=== PATIENT | female | born 1930 | race Caucasian/White ===

== ENCOUNTER → 2016-08-29 | Outpatient (CLI) | payer OTHER ==
[~2016-08-29] MED LIST: ACET-1175 PO; AMLO-110 PO; ASPEC81 PO; ATOR-26 PO; CARV25TA2 PO; CHOL100010 PO; CLOP1TAB15 PO; CLTP PO; CTP/1 PO; FURO-85 PO; HYDR-4717 PO; LISI-791 PO; MAGN1CAP2 PO; PANT1TAB48 PO; POLY335025 PO; SENN-104 PO
[2016-08-29 12:56] LABS: BLOOD UREA NITROGEN 25 mg/dl (7-18); BUN/CREATININE RATIO 13.4 (10-20); CALCIUM 9.8 mg/dl (8.5-10.1); CARBON DIOXIDE 28 mmol/L (21-32); CHLORIDE 108 mmol/L (98-107); GLUCOSE 114 mg/dl (70-99); POTASSIUM 4.1 mmol/L (3.5-5.1); SODIUM 142 mmol/L (136-145)
== END | disposition home or self-care (01) ==
LOC: C.LABSALHI 11:43
PROVIDERS: ATTEND Nurse Practitioner Family
DX: R60.9 Edema, unspecified (principal)

== ENCOUNTER → 2017-09-19 | Outpatient (CLI) | payer OTHER ==
[~2017-09-19] MED LIST changes: +PANT1TAB3 PO; -PANT1TAB48 PO
[2017-09-19 09:57] LABS: HEMATOCRIT 35.9 % (37-47); HEMOGLOBIN 11.6 g/dL (12.0-16.0); MEAN CELL VOLUME 85.7 fL (80-100); MEAN CORPUSCULAR HEMOGLOBIN 27.7 pg (25-34); MEAN CORPUSCULAR HGB CONC 32.3 g/dl (32-36); MEAN PLATELET VOLUME 9.5 fL (7.4-10.4); PLATELET COUNT 201 K/uL (130-400); RED CELL DISTRIBUTION WIDTH CV 14.3 % (11.5-14.5); RED CELL DISTRIBUTION WIDTH SD 44.6 fL (36.4-46.3); WHITE BLOOD COUNT 7.39 K/uL (4.8-10.8)
[2017-09-19 10:09] LABS: BLOOD UREA NITROGEN 33 mg/dl (7-18); CALCIUM 10.5 mg/dl (8.5-10.1); CARBON DIOXIDE 27 mmol/L (21-32); CREATININE 2.11 mg/dl (0.60-1.20); GLUCOSE 103 mg/dl (70-99); POTASSIUM 4.1 mmol/L (3.5-5.1); SODIUM 142 mmol/L (136-145)
== END ==
LOC: C.LABCC 08:33
PROVIDERS: ATTEND Internal Medicine
DX: N18.3 Chronic kidney disease, stage 3 (moderate) (principal); D64.9 Anemia, unspecified

== ENCOUNTER → 2017-10-03 | Outpatient (CLI) | payer OTHER | LOC: C.LABCC 08:11 | PROVIDERS: ATTEND Internal Medicine | DX: I63.9 Cerebral infarction, unspecified (principal) ==

== ENCOUNTER 2017-10-19 10:40 | Emergency (ER) | payer OTHER ==
[~2017-10-19] VITALS: Ht 160 cm; Wt 72.4 kg
[2017-10-19 10:50] VITALS: TEMP 36.7; Ht 160 cm; Wt 72.4 kg
--- NOTE | 2017-10-19 10:51 | EMERGENCY ROOM VISIT NOTE ---
History Report prepared by Jose: Carlee Freire Under the Supervision of: Dr. Baldo Baldreas M.D. First contact with patient: 10:39 Stated Complaint: FALL/ CONFUSED History of Present Illness The patient is a 84 year old female who presents to the Emergency Room with complaints of a fall beginning yesterday. As per EMS, the patient fell out of her wheelchair facedown yesterday and [facility] has been monitoring her since. They noticed that at 0800 this morning she was not responding normally. When asked, the patient is unsure of how she fell. She has hip and abdominal pain. She is currently taking Plavix. She is DNR and has a history of CVA and mild dementia. Source of History: patient, EMS Onset: yesterday Position: head, other (upper and lower extremities, hips) Quality: other (fall) Associated Symptoms: + abdominal pain Note: Positive hip pain Review of Systems See HPI for pertinent positives and negatives. A total of ten systems were reviewed and were otherwise negative. Past Medical & Surgical Medical Problems: (1) Dyslipidemia (2) Gastroesophageal reflux disease (3) Hyperlipidemia Family History Patient reports no known family medical history. Social History Smoking Status: Unknown if Ever Smoked Drug Use: none Housing Status: assisted living Occupation Status: retired Current/Historical Medications Scheduled Aspirin (Aspirin Ec), 81 MG PO DAILY Atorvastatin (Lipitor), 20 MG PO QPM Calcium Carbonate-Vitamin D (Caltrate 600+D 600-400 mg-Unit), 1 TAB PO BID Carvedilol (Coreg), 25 MG PO BID Clopidogrel (Plavix), 75 MG PO DAILY@1200 Docusate Sodium (Colace), 200 MG PO QPM Hydralazine Hcl (Apresoline), 75 MG PO TID Pantoprazole (Protonix), 40 MG PO DAILY Tramadol (Ultram), 50 MG PO QAM Scheduled PRN Acetaminophen (Tylenol), 650 MG PO Q 4-6 HOURS PRN for Pain or Fever Allergies Coded Allergies: Alendronate (Verified Allergy, Unknown, abd pain, 10/19/17) Physical Exam Vital Signs Date Time Temp Pulse Resp B/P (MAP) Pulse Ox O2 Delivery O2 Flow Rate FiO2 10/19/17 13:43 60 20 148/83 94 Room Air 10/19/17 12:27 55 16 131/65 93 Room Air 10/19/17 10:50 36.7 58 16 149/75 95 Room Air Physical Exam Physical Exam GENERAL: A and O x1. She appears well-developed and well-nourished. She does not appear distressed. HENT: Exam performed. Head: Normocephalic and atraumatic. Hematoma over her right forehead. Right Ear: External ear normal. No mastoid tenderness. Left Ear: External ear normal. No mastoid tenderness. Mouth/Throat: The oropharynx is clear and moist. No trismus in the jaw. No dental abscesses or uvula swelling. No oropharyngeal exudate or tonsillar abscesses. ____ EYES: Conjunctivae and EOM are normal. Pupils are equal, round, and reactive to light. Right eye exhibits no discharge. Left eye exhibits no discharge. No scleral icterus. ____ NECK: Normal range of motion. Neck supple. No JVD present. No spinous process tenderness present. No carotid bruit present. No rigidity. No tracheal deviation and normal range of motion present. No Brudzinski's sign and no Kernig 's sign noted. ____ CV: Normal rate, regular rhythm, normal heart sounds and intact distal pulses. There is no peripheral edema. Palpable radial pulses bue. ____ PULM/CHEST: Effort normal and breath sounds normal. No respiratory distress. No stridor. She has no wheezes. She has no rales. Chest Wall: She exhibits no tenderness. ____Bruising over her left anterior chest wall. ABD: The abdomen is soft. Bowel sounds are normal. She has no distension. No mass is present. There is no tenderness. There is no rebound, no guarding, no Melgoza's sign and no tenderness at McBurney's point. Rovsig negative MUSC/SKEL: Normal range of motion. There is no peripheral edema or deformity. __ Bilateral knee pain. Pain on palpation of the left hip. Bruising over the bilateral anterior knees. Pain on palpation of the C spine. Bruising over her left shoulder. LYMPH: No cervical adenopathy. ____ NEURO: She is alert and oriented to place. She has normal strength. No cranial nerve deficit or sensory deficit. GCS eye subscore is 4. GCS verbal subscore is 5. GCS motor subscore is 6. SKIN: Skin is warm and dry. She is not diaphoretic. ____ PSYCH: She has a normal mood and affect. Her behavior is normal. Judgment and thought content normal. ____ Medical Decision & Procedures ER Provider Diagnostic Interpretation: Radiology results as stated below per my review and radiologist interpretation: PELVIS 1 OR 2 VIEW ROUTINE CLINICAL HISTORY: Fall. Left hip pain. COMPARISON STUDY: No previous studies for comparison. FINDINGS: The sacroiliac joints and symphysis pubis are intact. There is no acute fracture within the pelvis or hips. Moderate stool within the rectum is noted. There is moderate vascular calcification. IMPRESSION: No acute fracture within the pelvis or hips. Electronically signed by: Eligio Carlton M.D. 10/19/2017 12:39 PM R KNEE 1 OR 2 VIEWS ROUTINE CLINICAL HISTORY: Right knee pain following fall to COMPARISON: None FINDINGS: Alignment of the right knee is anatomic. There is a moderate size right knee joint effusion. No fracture is identified. There is marked lateral compartment joint space narrowing with osteophytosis. Extensive vascular calcification is identified. IMPRESSION: 1. No acute fracture identified. 2. Moderate size right knee joint effusion. 3. 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 Electronically signed by: Eligio Carlton M.D. 10/19/2017 12:32 PM L KNEE 1 OR 2 VIEWS ROUTINE CLINICAL HISTORY: Fall. Bilateral knee pain. COMPARISON: None FINDINGS: No acute fracture is identified. Note is made of extensive vascular calcification. There is moderate to severe joint space narrowing with osteophytosis within the lateral and patellofemoral compartments of the left knee. A small left knee joint effusion is noted. IMPRESSION: 1. No acute fracture. 2. Moderate to severe osteoarthritis within the lateral and patellofemoral compartment of the left knee. 3. Small left knee joint effusion. Electronically signed by: Eligio Carlton M.D. 10/19/2017 12:33 PM L HIP UNILATERAL 2 VIEWS CLINICAL HISTORY: Left hip pain following fall. COMPARISON: None FINDINGS: Alignment of the left hip is anatomic. There is no acute fracture. Joint spaces preserved. There is moderate vascular calcification. IMPRESSION: No acute fracture or dislocation of the left hip. Electronically signed by: Eligio Carlton M.D. 10/19/2017 12:[address] OF THE HEAD WITHOUT CONTRAST CLINICAL HISTORY: Fall. Anticoagulation. COMPARISON STUDY: Head CT and MRI the brain June 23, 2011. TECHNIQUE: Helical axial images of the head were obtained without IV contrast. Automated exposure control was utilized for the study. A dose lowering technique was utilized adhering to the principles of ALARA. FINDINGS: No acute intracranial hemorrhage, midline shift or mass effect is present. Ventricular system is unremarkable. Basilar cisterns are patent. There are no extra axial collections. Left cerebellar encephalomalacia suggests an old infarct. There is a moderate size right frontal scalp contusion with no calvarial fracture. IMPRESSION: 1. No acute intracranial findings. 2. Moderate sized right frontal scalp contusion. No calvarial fracture. 3. Old left cerebellar infarct. Electronically signed by: Eligio Carlton M.D. 10/19/2017 11:26 AM CHEST 2 VIEWS ROUTINE CLINICAL HISTORY: Fall. COMPARISON STUDY: Chest radiograph October 28, 2013. FINDINGS: There is no pneumothorax or pleural effusion. Note is made of moderate cardiomegaly. Lower mediastinal contour abnormality favors a hiatal hernia. There is pulmonary vascular congestion. Incidental note is made of cholecystectomy clips. IMPRESSION: 1. No pneumothorax. 2. Moderate cardiomegaly. 3. Pulmonary vascular congestion. 4. Suspected hiatal hernia. Electronically signed by: Eligio Carlton M.D. 10/19/2017 12:[address] OF THE CERVICAL SPINE WITHOUT CONTRAST CLINICAL HISTORY: Fall. COMPARISON STUDY: No previous studies for comparison. TECHNIQUE: Helical axial images of the cervical spine were obtained without IV contrast. Sagittal and coronal reconstructions were viewed. A dose lowering technique was utilized adhering to the principles of ALARA. FINDINGS: There is 3 mm anterolisthesis of C3 on C4 due to facet arthrosis. There is severe multilevel facet arthrosis and moderate to severe disc space narrowing and osteophytosis at C4-C5, C5-C6 and C6-C7. There is no acute cervical spine fracture. There is no prevertebral edema. IMPRESSION: No acute cervical spine fracture or subluxation. Electronically signed by: Eligio Carlton M.D. 10/19/2017 11:37 AM Procedure Bedside FAST exam performed with ultrasound. Views were obtained in the hepatorenal subxyphoid splenorenal and suprapubic windows. No free fluid in the abdomen. No pericardial tamponade. ED Course 1040: The patient was evaluated in room C4. A complete history and physical exam was performed. 1253: Vital signs stable. Imaging within normal limits. Discharge to nursing facility via EMS. Medical Decision Vital signs stable. Imaging within normal limits. Discharge to nursing facility via EMS. Medication Reconcilliation Current Medication List: was personally reviewed by me Blood Pressure Screening Patient's blood pressure: Normal blood pressure Blood pressure disposition: Did not require urgent referral Impression Primary Impression: Fall Additional Impression: Head contusion Scribe Attestation The scribe's documentation has been prepared under my direction and personally reviewed by me in its entirety. I confirm that the note above accurately reflects all work, treatment, procedures, and medical decision making performed by me. The chart was completed utilizing [employer] Speech voice recognition software. Grammatical errors, random word insertions, pronoun errors, and incomplete sentences are an occasional consequence of this system due to software limitations, ambient noise, and hardware issues. Any formal questions or concerns about the content, text, or information contained within the body of this dictation should be directly addressed to the physician for clarification. Departure Information Dispostion Home / Self-Care Forms HOME CARE DOCUMENTATION FORM, IMPORTANT VISIT INFORMATION Problem Qualifiers Primary Impression: Fall Encounter type: initial encounter Qualified Codes: W19.XXXA - Unspecified fall, initial encounter Additional Impression: Head contusion Encounter type: initial encounter Contusion of head detail: unspecified part of head Qualified Codes: S00.93XA - Contusion of unspecified part of head , initial encounter
--- NOTE | 2017-10-19 11:28 | DIAGNOSTIC IMAGING REPORT ---
CT OF THE HEAD WITHOUT CONTRAST CLINICAL HISTORY: Fall. Anticoagulation. COMPARISON STUDY: Head CT and MRI the brain June 23, 2011. TECHNIQUE: Helical axial images of the head were obtained without IV contrast. Automated exposure control was utilized for the study. A dose lowering technique was utilized adhering to the principles of ALARA. FINDINGS: No acute intracranial hemorrhage, midline shift or mass effect is present. Ventricular system is unremarkable. Basilar cisterns are patent. There are no extra axial collections. Left cerebellar encephalomalacia suggests an old infarct. There is a moderate size right frontal scalp contusion with no calvarial fracture. IMPRESSION: 1. No acute intracranial findings. 2. Moderate sized right frontal scalp contusion. No calvarial fracture. 3. Old left cerebellar infarct. Electronically signed by: Eligio Carlton M.D. 10/19/2017 11:26 AM Dictated Date/Time: 10/19/2017 11:24 AM
--- NOTE | 2017-10-19 11:38 | DIAGNOSTIC IMAGING REPORT ---
CT OF THE CERVICAL SPINE WITHOUT CONTRAST CLINICAL HISTORY: Fall. COMPARISON STUDY: No previous studies for comparison. TECHNIQUE: Helical axial images of the cervical spine were obtained without IV contrast. Sagittal and coronal reconstructions were viewed. A dose lowering technique was utilized adhering to the principles of ALARA. FINDINGS: There is 3 mm anterolisthesis of C3 on C4 due to facet arthrosis. There is severe multilevel facet arthrosis and moderate to severe disc space narrowing and osteophytosis at C4-C5, C5-C6 and C6-C7. There is no acute cervical spine fracture. There is no prevertebral edema. IMPRESSION: No acute cervical spine fracture or subluxation. Electronically signed by: Eligio Carlton M.D. 10/19/2017 11:37 AM Dictated Date/Time: 10/19/2017 11:32 AM
[2017-10-19] MEDS ORDERED: ASPI81TA28 PO (11:42)
[2017-10-19] MEDS ORDERED: ATOR-22 PO (11:43)
[2017-10-19] MEDS ORDERED: CALC1CHW2 PO (11:44)
[2017-10-19] MEDS ORDERED: DOCU-94 PO (11:46)
[2017-10-19] MEDS ORDERED: HYDR-4717 PO (11:47)
[2017-10-19] MEDS ORDERED: TRAM-10 PO (11:48)
--- NOTE | 2017-10-19 12:31 | DIAGNOSTIC IMAGING REPORT ---
CHEST 2 VIEWS ROUTINE CLINICAL HISTORY: Fall. COMPARISON STUDY: Chest radiograph October 28, 2013. FINDINGS: There is no pneumothorax or pleural effusion. Note is made of moderate cardiomegaly. Lower mediastinal contour abnormality favors a hiatal hernia. There is pulmonary vascular congestion. Incidental note is made of cholecystectomy clips. IMPRESSION: 1. No pneumothorax. 2. Moderate cardiomegaly. 3. Pulmonary vascular congestion. 4. Suspected hiatal hernia. Electronically signed by: Eligio Carlton M.D. 10/19/2017 12:30 PM Dictated Date/Time: 10/19/2017 12:28 PM
--- NOTE | 2017-10-19 12:33 | DIAGNOSTIC IMAGING REPORT ---
R KNEE 1 OR 2 VIEWS ROUTINE CLINICAL HISTORY: Right knee pain following fall to COMPARISON: None FINDINGS: Alignment of the right knee is anatomic. There is a moderate size right knee joint effusion. No fracture is identified. There is marked lateral compartment joint space narrowing with osteophytosis. Extensive vascular calcification is identified. IMPRESSION: 1. No acute fracture identified. 2. Moderate size right knee joint effusion. 3. 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 Electronically signed by: Eligio Carlton M.D. 10/19/2017 12:32 PM Dictated Date/Time: 10/19/2017 12:30 PM
--- NOTE | 2017-10-19 12:34 | DIAGNOSTIC IMAGING REPORT ---
L KNEE 1 OR 2 VIEWS ROUTINE CLINICAL HISTORY: Fall. Bilateral knee pain. COMPARISON: None FINDINGS: No acute fracture is identified. Note is made of extensive vascular calcification. There is moderate to severe joint space narrowing with osteophytosis within the lateral and patellofemoral compartments of the left knee. A small left knee joint effusion is noted. IMPRESSION: 1. No acute fracture. 2. Moderate to severe osteoarthritis within the lateral and patellofemoral compartment of the left knee. 3. Small left knee joint effusion. Electronically signed by: Eligio Carlton M.D. 10/19/2017 12:33 PM Dictated Date/Time: 10/19/2017 12:32 PM
--- NOTE | 2017-10-19 12:40 | DIAGNOSTIC IMAGING REPORT ---
PELVIS 1 OR 2 VIEW ROUTINE CLINICAL HISTORY: Fall. Left hip pain. COMPARISON STUDY: No previous studies for comparison. FINDINGS: The sacroiliac joints and symphysis pubis are intact. There is no acute fracture within the pelvis or hips. Moderate stool within the rectum is noted. There is moderate vascular calcification. IMPRESSION: No acute fracture within the pelvis or hips. Electronically signed by: Eligio Carlton M.D. 10/19/2017 12:39 PM Dictated Date/Time: 10/19/2017 12:38 PM
--- NOTE | 2017-10-19 12:41 | DIAGNOSTIC IMAGING REPORT ---
L HIP UNILATERAL 2 VIEWS CLINICAL HISTORY: Left hip pain following fall. COMPARISON: None FINDINGS: Alignment of the left hip is anatomic. There is no acute fracture. Joint spaces preserved. There is moderate vascular calcification. IMPRESSION: No acute fracture or dislocation of the left hip. Electronically signed by: Eligio Carlton M.D. 10/19/2017 12:40 PM Dictated Date/Time: 10/19/2017 12:39 PM
[2017-10-19 13:43] VITALS: BP 148/83; PULSE 60; O2SAT 94
== END 2017-10-19 14:03 ==
LOC: EDBD 10:40 → C.EDC 10:41
DX: S00.93XA Contusion of unspecified part of head, initial encounter (principal); W05.0XXA Fall from non-moving wheelchair, initial encounter; Y92.199 Unspecified place in other specified residential institution as the place of occurrence of the external cause; S20.212A Contusion of left front wall of thorax, initial encounter; S80.01XA Contusion of right knee, initial encounter; S80.02XA Contusion of left knee, initial encounter; S40.012A Contusion of left shoulder, initial encounter; E78.5 Hyperlipidemia, unspecified; Z86.73 Personal history of transient ischemic attack (TIA), and cerebral infarction without residual deficits; Z79.82 Long term (current) use of aspirin; Z79.899 Other long term (current) drug therapy; Z88.8 Allergy status to other drugs, medicaments and biological substances

== ENCOUNTER → 2018-01-01 | Outpatient (CLI) | payer OTHER ==
[~2018-01-01] MED LIST changes: -AMLO-110 PO; -ASPEC81 PO; +ASPI81TA28 PO; +ATOR-22 PO; -ATOR-26 PO; +CALC1CHW2 PO; -CHOL100010 PO; -CLTP PO; -CTP/1 PO; +DOCU-94 PO; -FURO-85 PO; -LISI-791 PO; -MAGN1CAP2 PO; -POLY335025 PO; -SENN-104 PO; +TRAM-10 PO
[2018-01-01 09:33] LABS: BLOOD UREA NITROGEN 16 mg/dl (7-18); CALCIUM 9.2 mg/dl (8.5-10.1); CARBON DIOXIDE 26 mmol/L (21-32); CREATININE 1.69 mg/dl (0.60-1.20); GLUCOSE 98 mg/dl (70-99); POTASSIUM 4.2 mmol/L (3.5-5.1); SODIUM 141 mmol/L (136-145)
== END ==
LOC: C.LABCC 08:40
PROVIDERS: ATTEND Internal Medicine
DX: N18.3 Chronic kidney disease, stage 3 (moderate) (principal)

== ENCOUNTER → 2018-01-08 | Outpatient (CLI) | payer OTHER ==
[2018-01-08 09:30] LABS: BLOOD UREA NITROGEN 17 mg/dl (7-18); CARBON DIOXIDE 24 mmol/L (21-32); CREATININE 1.78 mg/dl (0.60-1.20); GLUCOSE 86 mg/dl (70-99); POTASSIUM 4.9 mmol/L (3.5-5.1); SODIUM 140 mmol/L (136-145)
== END ==
LOC: C.LABCC 08:37
PROVIDERS: ATTEND Internal Medicine
DX: N18.9 Chronic kidney disease, unspecified (principal)